=== PATIENT | female | born 2000 | race Caucasian/White ===

== ENCOUNTER → 2020-03-04 | Outpatient (CLI) | payer BC, SELFPAY ==
[2020-03-06 03:06] LABS: Chlamydia By Nucleic Acid AMP Negative (Negative)
[2020-03-06 11:35] LABS: Gonococcus By Nucleic Acid AMP Negative (Negative)
[2020-03-06 15:10] LABS: HPV Reflexed? NOT INDICATED
== END | disposition home or self-care (01) ==
LOC: LABSPEC 11:17
PROVIDERS: Visit Provider Obstetrics & Gynecology
DX: Z12.4 Encounter for screening for malignant neoplasm of cervix (principal); Z11.3 Encounter for screening for infections with a predominantly sexual mode of transmission
CPT/HCPCS: 87491; 87591; 88175; G0145